=== PATIENT | female | born 1980 | race Caucasian/White ===

== ENCOUNTER → 2016-11-18 | Outpatient (CLI) | payer OTHER ==
[~2016-11-18] MED LIST: OXYC-57 PO; PRENTAB26 PO
[2016-11-18 15:13] LABS: URINE APPEARANCE CLEAR (CLEAR); URINE BILIRUBIN NEG (NEG); URINE COLOR YELLOW; URINE EPITHELIAL CELL AUTO >30 /lpf (0-5); URINE NITRITE NEG (NEG); URINE PH 6.5 (4.5-7.5); UROBILINOGEN NEG (NEG)
[2016-11-18 15:18] LABS: MANUAL MICROSCOPIC REQUIRED? NO; REVIEW REQ? NO
== END | disposition home or self-care (01) ==
LOC: C.LABSPEC 13:52
PROVIDERS: ATTEND Obstetrics & Gynecology
DX: O44.03 Complete placenta previa NOS or without hemorrhage, third trimester (principal)

== ENCOUNTER → 2016-11-18 | Outpatient (CLI) | payer OTHER ==
[2016-11-18 13:10] LABS: HEMATOCRIT 37.5 % (37-47)
[2016-11-18 13:41] LABS: GTGD 50 Grams
== END | disposition home or self-care (01) ==
LOC: C.LAB1850 11:42
PROVIDERS: ATTEND Obstetrics & Gynecology
DX: O44.03 Complete placenta previa NOS or without hemorrhage, third trimester (principal)

== ENCOUNTER 2017-01-04 09:16 | Inpatient (IN) | payer OTHER ==
[~2017-01-04] VITALS: Ht 165.1 cm; Wt 72.6 kg
[2017-01-04] VITALS (11 sets, daily range): BP systolic 107–118; BP diastolic 60–86; PULSE 67–92; TEMP 36.3–37.1; O2SAT 100; Ht 165.1 cm; Wt 72.6 kg
[~2017-01-04 09:16] MED LIST changes: -OXYC-57 PO
[2017-01-04] MEDS ORDERED: CITRIC ACID/SODIUM CITRATE 15 ML UDC PO ONE (10:30)
[2017-01-04] MEDS ORDERED: LACTATED RINGER'S 1000ML 1,000 ML IV SCH ×2 (10:30→12:18)
--- NOTE | 2017-01-04 10:46 | DIAGNOSTIC IMAGING REPORT ---
LIMITED (US) CLINICAL HISTORY: Abnormal bleeding. COMPARISON STUDY: No previous studies for comparison. FINDINGS: The study is performed in a normal fashion on an emergent basis. A single fetus in cephalic presentation was identified. The heart rate was 159. There is a possible placenta previa however the cervical os was not demonstrated on the provided images and evaluation of the placenta position nondiagnostic. IMPRESSION: Technically limited study. Possible placenta previa however the evaluation of placenta position is felt to be nondiagnostic. Additional imaging including translabial scanning might be considered in follow-up for further evaluation. Electronically signed by: Zaid Banks M.D. 01/04/2017 10:45 AM Dictated Date/Time: 01/04/2017 10:42 AM
[2017-01-04] MEDS ORDERED: MoRPHine SULFATE PF 1 MG/ML 10 ML AMP/VIAL ONE (10:50)
[2017-01-04 10:54] LABS: HEMATOCRIT 36.6 % (37-47); MEAN CELL VOLUME 92.2 fL (80-100); MEAN CORPUSCULAR HEMOGLOBIN 31.5 pg (25-34); MEAN CORPUSCULAR HGB CONC 34.2 g/dl (32-36); MEAN PLATELET VOLUME 9.1 fL (7.4-10.4); PLATELET COUNT 192 K/uL (130-400); RED BLOOD COUNT 3.97 M/uL (4.2-5.4); WHITE BLOOD COUNT 6.67 K/uL (4.8-10.8)
[2017-01-04] MEDS ORDERED: CITRIC ACID/SODIUM CITRATE 15 ML UDC ONE (11:05)
[2017-01-04] MEDS ORDERED: NALOXONE HCL INJ 1 MG in SODIUM CHLORIDE 0.9% 1000ML 1,000 ML IV PRN ×4 (11:10)
[2017-01-04] MEDS ORDERED: NALOXONE HCL INJ 0.08 MG in SYRINGE 1.8 ML IV PRN (11:10)
[2017-01-04] MEDS ORDERED: LACTATED RINGER'S 1000ML 500 ML IV PRN (11:10)
[2017-01-04] MEDS ORDERED: SODIUM CHLORIDE 0.9% 1000ML 1,000 ML IV PRN (11:10)
[2017-01-04] MEDS ORDERED: KETOROLAC TROMETHAMINE 30 MG/ML VIAL IV. PRN ×2 (11:15)
[2017-01-04] MEDS ORDERED: MoRPHine SULFATE PF 1 MG/ML 10 ML AMP/VIAL EPI PRN (11:15)
[2017-01-04] MEDS ORDERED: MEPERIDINE HCL 25 MG/ML CARP IV PRN ×2 (11:15)
[2017-01-04] MEDS ORDERED: EpHEDrine SULFATE INJ 50 MG/ML AMP IV PRN ×2 (11:15)
[2017-01-04] MEDS ORDERED: NALBUPHINE HCL INJ 10 MG/ML AMP IV PRN (11:15)
[2017-01-04] MEDS ORDERED: PROMETHAZINE HCL INJ 25 MG in SODIUM CHLORIDE 0.9% 50ML 50 ML IV PRN (11:15)
[2017-01-04] MEDS ORDERED: PHENYLEPHRINE 100MCG/ML 5ML SYR IV PRN (11:15)
[2017-01-04] MEDS ORDERED: PROMETHAZINE HCL INJ 12.5 MG in SODIUM CHLORIDE 0.9% 50ML 50 ML IV PRN (11:15)
[2017-01-04] MEDS ORDERED: NO NARCOTICS OR SEDATIVES SCH (11:15)
[2017-01-04] MEDS ORDERED: ONDANSETRON INJ 2 MG/ML 2 ML VIAL IV PRN ×2 (11:15)
[2017-01-04] MEDS ORDERED: ATROPINE SULFATE 0.1 MG/ML 5ML SYR IV PRN (11:15)
[2017-01-04] MEDS ORDERED: DiphenhydrAMINE HCL 50 MG/ML VIAL IV PRN (11:15)
[2017-01-04] MEDS ORDERED: NALOXONE HCL 0.4 MG/1 ML VIAL/CARP IV PRN (11:15)
[2017-01-04] MEDS ORDERED: OXYTOCIN INJ 10 UNITS/ML VIAL ONE ×3 (11:40→11:56)
[2017-01-04] MEDS ORDERED: METOCLOPRAMIDE HCL INJ 5 MG/ML 2 ML VIAL ONE (11:40)
[2017-01-04] MEDS ORDERED: ONDANSETRON INJ 2 MG/ML 2 ML VIAL ONE (11:40)
[2017-01-04] MEDS ORDERED: PHENYLEPHRINE 100MCG/ML 5ML SYR ONE (11:40)
[2017-01-04] MEDS ORDERED: EpHEDrine SULFATE 50MG/5ML SYR ONE (11:40)
[2017-01-04] MEDS ORDERED: PATIENT'S HEIGHT AND/OR WEIGHT NEEDED STA (12:07)
[2017-01-04] MEDS ORDERED: SUPERCREAM 0.870 % 15GM JAR EXT PRN (12:30)
[2017-01-04] MEDS ORDERED: HYDROCORTISONE ACETATE 25 MG SUPP PR PRN (12:30)
[2017-01-04] MEDS ORDERED: LANOLIN OINT EXT PRN ×2 (12:30)
[2017-01-04] MEDS ORDERED: MAGNESIUM HYDROXIDE SUSP 30 ML UDC PO PRN (12:30)
[2017-01-04] MEDS ORDERED: BENZOCAINE 20% AER SPR 82.5 GM CAN EXT PRN (12:30)
--- NOTE | 2017-01-04 12:39 | [facility] Post Operative Brief Note ---
Immediate Operative Summary Operative Date January 04, 2017. Pre-Operative Diagnosis 1. 36+ wk ega 2. CPP 3. Vaginal bleeding Post-Operative Diagnosis same, malpresentation. Procedure(s) Performed Primary LTCS Surgeon Arjun Director Of Sustainability Surgeon(s) Barbara Estimated Blood Loss 800 Findings viable male apgars 8,9, nl uterus, tubes and ovaries bilaterally. Fluids (cc crystalloids) 3000 Specimens cord blood Drains berumen Anesthesia spinal with duramorph Complication(s) None Disposition Recovery Room / PACU
--- NOTE | 2017-01-04 12:40 | Medical Student: [facility] ---
Immediate Operative Summary Operative Date January 04, 2017. Pre-Operative Diagnosis (1) 36 week , (2) Complete placenta previa Post-Operative Diagnosis (1) 36 week , (2) Complete placenta previa Procedure(s) Performed primary c/s Surgeon Dr. Díaz Specialty Sales Representative Surgeon(s) Dr. Jimenez, Dr. Woodard Estimated Blood Loss 800cc Findings Viable baby boy delivered breech, [id number], 8,9 Normal uterus and adnexa bilaterally Fluids (cc crystalloids) 3L Specimens Placenta and cord Drains Gibson Anesthesia Spinal Complication(s) None Disposition L&D
[2017-01-04] MEDS ORDERED: OXYTOCIN INJ 30 UNITS in LACTATED RINGER'S 1000ML 1,000 ML IV SCH (13:00)
--- NOTE | 2017-01-04 13:06 | OPERATIVE REPORT ---
DATE OF OPERATION: 01/04/2017 PREOPERATIVE DIAGNOSES: 1. A 36 and 2/7 weeks intrauterine . 2. Complete placenta previa. 3. Vaginal bleeding. POSTOPERATIVE DIAGNOSES: 1. Same. 2. transverse lie. PROCEDURE: Primary low transverse section. SURGEON: Dr. Shana Díaz. SERVICE CENTER APPRAISER: Jerrica Jimenez DO IV FLUIDS: 3 liters. ESTIMATED BLOOD LOSS: 800 mL. ANESTHESIA: Spinal with Duramorph. FINDINGS: Viable male , Apgars 8 and 9. Normal uterus, tubes and ovaries bilaterally. Complete placenta previa as noted. INDICATIONS: A 36-year-old 6, para 3 at 36 and 2/7 weeks, who presented to the labor and delivery suite with acute onset of bright red vaginal bleeding and a known complete placenta previa. Given her gestational age, the decision was made to proceed with a section. The fetus was cephalic prior to going back to the operating room. DESCRIPTION OF PROCEDURE: The patient was taken to the operating room and identified. After adequate spinal anesthesia was obtained, she was placed in the supine position with a leftward tilt and prepped and draped in the usual sterile fashion. The knife was used to create a Pfannenstiel skin incision that was carried down to the underlying layer of fascia. The fascia was nicked in midline and this opening was extended laterally using Whitmore scissors. Two Poonam clamps were placed in the superior and inferior aspects of the fascial incision. tenting it upwards and the underlying rectus muscles were dissected off the overlying fascia both sharply and bluntly using Whitmore scissors. The rectus muscles were bluntly in midline. The peritoneal cavity was bluntly entered into. This opening was stretched. The bladder blade was placed. The vesicouterine peritoneum was elevated and the bladder flap was created by first incising the peritoneum with Metzenbaum scissors and creating a bladder flap digitally. The bladder blade was replaced. Knife was used to create a hysterotomy that was then stretched. The operators hand was placed through the hysterotomy and the feet were noted. With the hand further extending to the left upper quadrant, the buttocks were s brought to the hysterotomy. With fundal pressure, the buttocks was delivered to the level of the scapula. The arms were swept across the anterior midline. The head was flexed and delivered. Nuchal cord x1 was reduced and the cord was clamped and cut and the was handed off to the awaiting pediatricians. Cord blood was obtained. The placenta was manually expressed. The uterus exteriorized and cleared of all clots and debris. Hysterotomy was closed in a running interlocking fashion using 0 Vicryl. A second imbricating layer of 0 Vicryl was placed. Hemostasis was inadequate to the left aspect of the hysterotomy and a 2-0 and 0 Vicryl [id number] sutures were placed and hemostasis was deemed adequate. The uterus was returned to the abdomen on several occasions to identify the bleeder and adequately obtain hemostasis. The pelvis had been irrigated and all clots and debris were removed. The uterus was returned to the abdomen for the final time and the hysterotomy was inspected and there was no further bleeding noted. At this point, the fascia was closed in a running fashion using 0 Vicryl. The skin was closed in a subcuticular fashion using 4-0 Vicryl. All sponge, lap and needle counts were correct x2. The patient was returned to the recovery room in stable condition. I attest to the content of the Intraoperative Record and any orders documented therein. Any exceptions are noted below. SUBHA
--- NOTE | 2017-01-04 14:09 | Anesthesiology Progress Note ---
Anesthesia Post Op Note Date & Time January 04, 2017 at 14:09 Notes Mental Status: alert / awake / arousable, participated in evaluation Pt Amnestic to Procedure: Yes Nausea / Vomiting: adequately controlled Pain: adequately controlled Airway Patency, RR, SpO2: stable & adequate BP & HR: stable & adequate Hydration State: stable & adequate Anesthetic Complications: no major complications apparent
[2017-01-04] MEDS: SIMETHICONE 80 MG CHEW PO SCH ×3 (14:42→19:55)
[2017-01-04] MEDS: OXYTOCIN INJ 20 UNITS in LACTATED RINGER'S 1000ML 1,000 ML IV SCH ×2 (14:49→23:14)
[2017-01-04] MEDS: DOCUSATE SODIUM 100 MG CAP PO SCH (19:55)
[2017-01-05 00:40] VITALS: O2SAT 98
[2017-01-05 01:35] VITALS: O2SAT 96
[2017-01-05 02:30] VITALS: O2SAT 99
[2017-01-05 04:00] VITALS: BP 110/64; PULSE 90; TEMP 37.4; O2SAT 100
[2017-01-05] MEDS ORDERED: DiphenhydrAMINE HCL 50 MG/ML VIAL IV PRN (04:00)
[2017-01-05] MEDS ORDERED: ONDANSETRON INJ 2 MG/ML 2 ML VIAL IV PRN (04:00)
[2017-01-05] MEDS ORDERED: KETOROLAC TROMETHAMINE 30 MG/ML VIAL IV. PRN (04:00)
[2017-01-05] MEDS ORDERED: OXYCODONE/ACETAMINOPHEN 5-325 TAB PO PRN (04:00)
[2017-01-05] MEDS ORDERED: PROMETHAZINE HCL INJ 25 MG in SODIUM CHLORIDE 0.9% 50ML 50 ML IV PRN (04:00)
[2017-01-05] MEDS ORDERED: DC INTRASPINAL MORPHINE PRN (04:00)
[2017-01-05] MEDS ORDERED: CEFAZOLIN IV 2,000 MG in DEXTROSE 5% 50ML 50 ML IV SCH (06:00)
[2017-01-05 06:18] LABS: BASO % 0.1 %; BASO ABS # 0.01 K/uL (0-0.2); COMPLETE YES; EOS % 1.1 %; HEMATOCRIT 29.3 % (37-47); IG% 0.2 %; LYMPH % 10.1 %; LYMPH ABS # 1.06 K/uL (1.2-3.4); MEAN CELL VOLUME 93.6 fL (80-100); MEAN CORPUSCULAR HEMOGLOBIN 32.3 pg (25-34); MEAN CORPUSCULAR HGB CONC 34.5 g/dl (32-36); MONO % 5.9 %; NEUT % 82.6 %; PLATELET COUNT 159 K/uL (130-400); RED BLOOD COUNT 3.13 M/uL (4.2-5.4); WHITE BLOOD COUNT 10.51 K/uL (4.8-10.8)
[2017-01-05 07:00] VITALS: BP 102/65; PULSE 83; TEMP 37.1; O2SAT 99
[2017-01-05] MEDS ORDERED: ACETAMINOPHEN 325 MG TAB PO PRN (07:00)
--- NOTE | 2017-01-05 07:32 | Progress Note ---
Subjective January 05, 2017. Subjective conversation w/ patient, physical exam, lab review Ambulation: limited ambulation Voiding: no voiding problems Passing Gas: No Diet Tolerance: Regular Diet Lochia: Moderate Feeding Type: Breast Feeding Pain: pain with walking Comment: Patient was seen at the bedside. No acute event overnight. Review of Systems Constitutional: No fever Respiratory: No cough, No shortness of breath Cardiac: No chest pain Breast: No breast lump Abdomen: No nausea, No pain, No vomiting Female : No dysuria, No urinary frequency Patient was seen at the bedside. No acute event overnight. Objective Vital Signs Date Time Temp Pulse Resp B/P Pulse Ox O2 Delivery O2 Flow Rate FiO2 01/05/17 04:00 37.4 90 18 110/64 100 Room Air 01/05/17 04:00 18 100 01/05/17 02:30 18 99 01/05/17 01:35 16 96 01/05/17 00:40 16 98 01/04/17 23:40 100 Room Air 01/04/17 23:40 37.1 85 16 115/86 100 Room Air 01/04/17 23:40 16 100 01/04/17 20:00 36.6 92 18 118/72 100 Room Air 01/04/17 20:00 18 100 01/04/17 19:00 18 100 01/04/17 18:00 18 100 01/04/17 17:00 36.5 73 18 108/67 100 Room Air 01/04/17 17:00 18 100 01/04/17 16:00 16 100 01/04/17 16:00 36.4 75 18 112/70 100 Room Air 01/04/17 15:58 36.4 75 18 112/70 100 Room Air 01/04/17 15:00 18 100 01/04/17 15:00 36.3 67 18 107/60 100 Room Air 01/04/17 15:00 100 Room Air 01/04/17 15:00 100 Room Air Physical Exam General Appearance: WELL-APPEARING, WD/WN, NO APPARENT DISTRESS Respiratory/Chest: chest non-tender, lungs clear, normal breath sounds, no respiratory distress Cardiovascular: regular rate, rhythm Abdomen: normal bowel sounds, non tender, soft Fundus: Firm, Relation to Umbilicus (about 1cm below U) Incision Description: Clean, Dry & Intact Extremities: non-tender, no pedal edema, no calf tenderness Laboratory Results Last 24 Hours Test 01/04/17 10:45 01/05/17 05:40 White Blood Count 6.67 K/uL 10.51 K/uL Red Blood Count 3.97 M/uL 3.13 M/uL Hemoglobin 12.5 g/dL 10.1 g/dL Hematocrit 36.6 % 29.3 % Mean Corpuscular Volume 92.2 fL 93.6 fL Mean Corpuscular Hemoglobin 31.5 pg 32.3 pg Mean Corpuscular Hemoglobin Concent 34.2 g/dl 34.5 g/dl RDW Standard Deviation 44.4 fL 46.9 fL RDW Coefficient of Variation 13.4 % 13.9 % Platelet Count 192 K/uL 159 K/uL Mean Platelet Volume 9.1 fL 9.0 fL Neutrophils (%) (Auto) 82.6 % Lymphocytes (%) (Auto) 10.1 % Monocytes (%) (Auto) 5.9 % Eosinophils (%) (Auto) 1.1 % Basophils (%) (Auto) 0.1 % Neutrophils # (Auto) 8.68 K/uL Lymphocytes # (Auto) 1.06 K/uL Monocytes # (Auto) 0.62 K/uL Eosinophils # (Auto) 0.12 K/uL Basophils # (Auto) 0.01 K/uL Immature Granulocyte % (Auto) 0.2 % Immature Granulocyte # (Auto) 0.02 K/uL Medications Current Inpatient Medications Medications (Trade) Dose Ordered Sig/Erick Route Start Time Stop Time Status Last Admin Dose Admin Lactated Ringer's 1,000 ml @ 1,000 mls/hr Q1H IV 01/04/17 10:30 02/03/17 10:29 01/04/17 11:18 1,000 MLS/HR Cefazolin Sodium/ Dextrose (Ancef Iv/D5 50ml) 60 ml @ 100 mls/hr PREOP IV 01/05/17 06:00 01/05/17 18:00 01/04/17 11:20 100 MLS/HR Morphine Sulfate TODAY PRN EPI 01/04/17 11:15 Lactated Ringer's (Lr 1000ml) 1,000 ml @ 125 mls/hr Q8H IV 01/04/17 12:18 02/03/17 12:17 Ketorolac Tromethamine (Toradol Inj) 30 mg Q6H PRN IV. 01/05/17 04:00 01/08/17 03:59 Oxycodone/ Acetaminophen (Percocet 5-325mg Tab) 1 tab Q4H PRN PO 01/05/17 04:00 01/19/17 03:59 Oxycodone/ Acetaminophen 2 tab 2 tab Q4H PRN PO 01/05/17 04:00 01/19/17 03:59 Promethazine HCl/ Sodium Chloride (Phenergan Inj/ Nss 50ml) 51 ml @ 204 mls/hr Q4H PRN IV 01/05/17 04:00 02/04/17 03:59 Ondansetron HCl (Zofran Inj) 4 mg Q4H PRN IV 01/05/17 04:00 02/04/17 03:59 Bisacodyl (Dulcolax Tab) 5 mg HS ONCE PO 01/05/17 22:00 01/05/17 22:01 Docusate Sodium (coLACE CAP) 100 mg BID PO 01/04/17 20:00 02/03/17 19:59 01/04/17 19:55 100 MG Magnesium Hydroxide (Milk Of Magnesia Susp) 30 ml HS PRN PO 01/04/17 12:30 02/03/17 12:29 Cocaine HCl (Supercream 0.870% Cr) BID PRN EXT 01/04/17 12:30 01/18/17 12:29 Lanolin (Lanolin Oint) PRN PRN EXT 01/04/17 12:30 02/03/17 12:29 Hydrocortisone Acetate (Anusol Hc Supp) 25 mg BID PRN MT 01/04/17 12:30 02/03/17 12:29 Benzocaine (Dermoplast Aero Spr) 1 appln PRN PRN EXT 01/04/17 12:30 02/03/17 12:29 Simethicone (Mylicon Chew Tab) 80 mg QID PO 01/04/17 13:00 02/03/17 12:59 01/04/17 19:55 80 MG Diphenhydramine HCl (Benadryl Cap) 25 mg QID PRN PO 01/05/17 04:00 02/04/17 03:59 Diphenhydramine HCl (Benadryl Inj) 25 mg QID PRN IV 01/05/17 04:00 02/04/17 03:59 Ibuprofen (Motrin Tab) 600 mg Q4H PRN PO 01/05/17 06:45 02/04/17 06:44 Acetaminophen (Tylenol Tab) 650 mg Q4H PRN PO 01/05/17 07:00 02/04/17 06:59 Assessment and Plan Problem List Medical Problems: (1) Lumbar strain Status: Acute Post-Op Day#: 1 Continue Routine Care: This is a 36 y/o female, , s/p . Limited ambulation. Plan: - Vitals signs are reviewed and WNL (Tmax 37.4 ) - Last Hgb is 10.1 - Blood type O+, GBS positive, Rubella Immune - Routine care - Encourage ambulation, monitor and control pain with medication as needed , continue with regular diet as tolerated and monitor lochia - Stool softeners and sitz bath recommended - Encourage breast feeding and educate about breast feeding Resident Physician Supervision Note: I was present with Dr. Verdin during the history and exam. I discussed the case with the resident and agree with the findings and plan as documented in the note. Any exceptions or clarifications are listed here: Doing well. Hgb noted. Plan recheck tomorrow. Enc ambulation, adv diet, po pain meds. breast feeding. Documented By: Shana Díaz
[2017-01-05] MEDS: IBUPROFEN 600 MG TAB PO PRN ×3 (07:40→17:51)
[2017-01-05] MEDS: OXYCODONE/ACETAMINOPHEN 5-325 TAB PO PRN ×3 (07:41→20:05)
[2017-01-05] MEDS: SIMETHICONE 80 MG CHEW PO SCH ×4 (07:42→19:55)
[2017-01-05] MEDS: DOCUSATE SODIUM 100 MG CAP PO SCH ×2 (07:42→19:55)
[2017-01-05 17:00] VITALS: BP 115/69; PULSE 81; TEMP 37.1; O2SAT 97
[2017-01-05] MEDS ORDERED: BISACODYL 5 MG TABEC ONE (20:03)
[2017-01-05] MEDS ORDERED: BISACODYL 5 MG TABEC PO ONE (22:00)
[2017-01-06 00:05] VITALS: BP 96/55; PULSE 76; O2SAT 100
[2017-01-06] MEDS: IBUPROFEN 600 MG TAB PO PRN ×4 (00:17→18:52)
[2017-01-06] MEDS: OXYCODONE/ACETAMINOPHEN 5-325 TAB PO PRN ×3 (00:17→18:52)
[2017-01-06 04:00] VITALS: BP 125/55; TEMP 37
--- NOTE | 2017-01-06 07:15 | Progress Note ---
Subjective January 06, 2017. Subjective conversation w/ patient, physical exam Voiding: no voiding problems Feeding Type: Breast Feeding Objective Vital Signs Date Time Temp Pulse Resp B/P Pulse Ox O2 Delivery O2 Flow Rate FiO2 01/06/17 04:00 37.0 125/55 01/06/17 00:05 76 18 96/55 100 Room Air 01/06/17 00:05 Room Air 01/05/17 17:00 Room Air 01/05/17 17:00 37.1 81 18 115/69 97 Room Air 01/05/17 07:30 Room Air Physical Exam General Appearance: WELL-APPEARING, NO APPARENT DISTRESS Incision Description: Clean, Dry & Intact, Ecchymosis Extremities: no calf tenderness Laboratory Results Last 24 Hours Test 01/06/17 05:52 Hemoglobin 10.1 g/dL Hematocrit 30.0 % Assessment and Plan Problem List Medical Problems: (1) Lumbar strain Status: Acute Post-Op Day#: 2 Continue Routine Care: - doing well - some bruising of incision, discussed with patient - ambulate - routine care
[2017-01-06 08:00] VITALS: BP 118/71; PULSE 89; TEMP 37; O2SAT 99
[2017-01-06] MEDS: SIMETHICONE 80 MG CHEW PO SCH ×4 (08:18→20:00)
[2017-01-06] MEDS: DOCUSATE SODIUM 100 MG CAP PO SCH ×2 (08:18→18:53)
[2017-01-06 15:56] VITALS: BP 109/70; PULSE 73; TEMP 37
[2017-01-07] VITALS: BP 103/66; PULSE 69; TEMP 36.3
[2017-01-07] MEDS: IBUPROFEN 600 MG TAB PO PRN ×2 (00:19→07:31)
[2017-01-07] MEDS: OXYCODONE/ACETAMINOPHEN 5-325 TAB PO PRN ×2 (00:20→07:31)
[2017-01-07 07:00] VITALS: BP 123/77; PULSE 78; TEMP 37.1; O2SAT 99
[2017-01-07] MEDS: DOCUSATE SODIUM 100 MG CAP PO SCH (07:30)
[2017-01-07] MEDS: SIMETHICONE 80 MG CHEW PO SCH ×2 (07:30→12:00)
--- NOTE | 2017-01-07 08:32 | Progress Note ---
Subjective January 07, 2017. Subjective conversation w/ patient, physical exam Ambulation: ambulating normally Voiding: no voiding problems Passing Gas: Yes Diet Tolerance: Regular Diet Lochia: Moderate Feeding Type: Breast Feeding Review of Systems Constitutional: No problem reported Respiratory: No problem reported Cardiac: No problem reported Breast: No problem reported Abdomen: No problem reported Female : No problem reported Objective Vital Signs Date Time Temp Pulse Resp B/P Pulse Ox O2 Delivery O2 Flow Rate FiO2 01/07/17 07:00 37.1 78 20 123/77 99 Room Air 01/07/17 00:00 36.3 69 14 103/66 Room Air 01/07/17 00:00 Room Air 01/06/17 16:10 Room Air 01/06/17 15:56 37.0 73 18 109/70 Room Air Physical Exam General Appearance: WELL-APPEARING, NO APPARENT DISTRESS Respiratory/Chest: no respiratory distress Cardiovascular: regular rate, rhythm Abdomen: non tender, soft Fundus: Firm Incision Description: Clean, Dry & Intact Extremities: normal range of motion Assessment and Plan Problem List Medical Problems: (1) Lumbar strain Status: Acute Post-Op Day#: 3 Continue Routine Care: POD#3 s/p . Doing well. Labia ecchymotic, but incision healing well. Anticipate discharge home today. Teaching done.
[2017-01-07] MEDS ORDERED: OXYC-57 PO (08:33)
--- NOTE | 2017-01-07 08:34 | Discharge Instructions ---
Discharge Instructions Date of Service January 07, 2017. Admission Reason for Admission: Check Bleeding Discharge Discharge Diagnosis / Problem: s/p section Discharge Goals Goal(s): Routine recovery after Activity Recommendations Activity Limitations: per Instructions/Follow-up section . Instructions / Follow-Up Instructions / Follow-Up ACTIVITY RECOMMENDATIONS: * Gradual return to full activity over the next 2-3 weeks. * No lifting - nothing heavier than baby over the next 2-3 weeks. * Do not engage in vigorous exercise, sexual activity or sports until cleared by your physician. * Do not drive or operate any motorized equipment until cleared by your physician. * You may shower/bathe daily. MEDICATIONS: For discomfort or pain, you may use Acetaminophen (Tylenol), Ibuprofen (Advil), or Naproxen (Aleve) following the package directions. For constipation you may use Colace following the package directions. BREAST CARE: If you are not breast feeding: * Wear a supportive bra 24 hours a day for one to two weeks. * Avoid stimulating your breasts and nipples as much as possible during the first few weeks after delivery. * When taking a shower, have the warm water hit your back, not breasts. * When your breasts feel full, apply ice packs. Usually three to four times a day helps ease the discomfort. * Take a mild pain medication (Tylenol / Motrin) when you are uncomfortable. If breast feeding: * Use breast milk to lubricate nipples. Lansinoh cream may be used for sore nipples. You do not need to remove cream prior to breast feeding. If using a different brand of cream, check the label for directions regarding removal of cream prior to nursing. * Wear a supportive bra. * If having problems with breasts or breast feeding, call a product support consultant or your health care provider. SPECIAL CARE INSTRUCTIONS: When you are discharged from the hospital, it is important for you to follow the instructions listed below: * During the first week at home, you should be able to care for yourself and your baby. In addition, the usual light household activities are encouraged. * Limit your activities to the way you feel. Do not try to clean the house or move furniture. Be sensible. * If you actively engage in sports and have done so up until the time of your delivery, you may resume these activities as soon as you feel able. This may take up to one month or even longer. Use good judgment. * Continue to take your vitamins for at least six weeks after the of your baby. * Your diet need not be limited unless you were on a special diet before your delivery. Breast-feeding mothers need around 2500 calories per day and at least 64-80 ounces of fluid per day (8 to 10 glasses). * You should eat foods from the four major food groups. Crash diets or fad diets are to be avoided. Eating lean meats, fresh fruits and vegetables, low-fat dairy products, high fiber foods and a regular exercise program, will help you get back to your pre- weight without putting your health at risk. * Constipation is sometimes a problem after delivery. Take a mild laxative as needed. If breast feeding, Milk of Magnesia is acceptable to use. You may use a suppository or Fleets enema. * A daily shower or tub bath is suggested. Wash incision daily with warm soapy water and pat dry. It doesn't need to be covered unless drainage is present. * A bloody vaginal discharge will usually continue until around four weeks . A small amount of bleeding may continue for as long as six weeks. Vaginal discharge changes from the bright red bleeding after delivery to pink then brownish and finally yellowish-pink before becoming white and disappearing. * Bleeding may increase with activity. Your first period may come in 4-8 weeks. If you are breast feeding, your period may be delayed even longer. * [place] (sex) can begin whenever both you and your partner feel comfortable and do not have any form of genital infection. It is recommended that you wait at least six weeks for internal and external healing to occur. If you have questions, please talk to your health care practitioner. A condom should be used to prevent infection and . * Foreplay, gentle intercourse and lubrication is very important the first several times to prevent pain. A water-based lubricant such as K-Y jelly or Astroglide may be used. * If you have RH negative blood and your baby is RH positive, you will receive RHOGAM by injection prior to discharge. The nurse will give you a card to keep with you that has the date and place that you received RHOGAM after delivery. * During your care, you had a Rubella screen done to check for the presence of rubella antibodies in your blood. If your test was negative, you will receive a Rubella vaccine prior to discharge. This vaccine may cause a fever, soreness at the injection site and flu-like symptoms. If these symptoms persist, notify your health care practitioner. is not advised for one month after a Rubella vaccine. * Verbalizes understanding of car seat law as reviewed with patient nursing. * Car Seat hand-out given and reviewed with patient by nursing. * Shaken baby information reviewed with patient by nursing. Call you doctor if: * Heavy bleeding (saturating several pads an hour) or passing clots the size of your fist. * A fever >101 degrees F (38.3 degrees C) on two occasions four hours apart and /or chills. * Unusual pain in the pelvic or vaginal areas. * Call the doctor for any increased redness, drainage or swelling around the incision and any pain unrelieved by prescribed pain medication. * "Baby Blues" lasting longer than two weeks. If you have any questions or concerns, call your health care practitioner at . FOLLOW UP VISIT: * Please call the office at to schedule a 6 week examination. It is important you keep this appointment. It is important for you to make arrangements for either yearly or twice yearly check-ups thereafter. Current Hospital Diet Patient's current hospital diet: Regular OB Diet Discharge Diet Recommended Diet: Regular OB Diet Procedures Procedures Performed: Primary caesarean section for complete placenta previa for living male child at 1144 Pending Studies Studies pending at discharge: no Medical Emergencies . Who to Call and When: Medical Emergencies: If at any time you feel your situation is an emergency, please call 911 immediately. . Non-Emergent Contact Non-Emergency issues call your: Primary Care Provider, Art Educator . . "Provider Documentation" section prepared by Jerrica Jimenez. . VTE Core Measure Inpt VTE Proph given/why not?: Treatment not indicated
[2017-01-07 13:10] VITALS: BP_DIAS 77; PULSE 78; TEMP 37.1
--- NOTE | 2017-01-10 14:25 | DISCHARGE SUMMARY ---
ADMISSION DIAGNOSES: 1. 36 and 2/7 weeks intrauterine . 2. Complete placenta previa. 3. Vaginal bleeding. DISCHARGE DIAGNOSES: Same. PROCEDURE: Primary low transverse section. BRIEF HISTORY AND HOSPITAL COURSE: A 36-year-old 6, para 3 at 36 and 2/7 weeks who presented to labor and delivery suite with acute onset of bright red vaginal bleeding and a known complete placenta previa. Given her gestational age, the decision was made to proceed with section due to the bleeding placenta previa. The fetus was cephalic prior to going back to the operating room; however, upon performed procedure as noted the baby was delivery in the breech position. The surgery itself was otherwise unremarkable with an estimated blood loss 800 mL. The patient's postop recovery and course was uncomplicated. Her postop hemoglobin was 10. On her postop day #3, she was tolerating a regular diet, voiding spontaneously without difficulty and ambulating without difficulty and was stable for discharge to home. She was given appropriate discharge instructions as well as pain medications and instructed to follow up in 6 weeks for her checkup.
== END 2017-01-07 13:10 | disposition home or self-care (01) | DRG 766 ==
LOC: C.OPB 09:16 → C.OBG 09:16 → C.OPB 10:35 → C.OBG 10:35 → C.LD 10:51 → C.OBG 15:29
PROVIDERS: ADMIT Obstetrics & Gynecology; ATTEND Obstetrics & Gynecology
PROC: 10D00Z1 Extraction of Products of Conception, Low, Open Approach (ICD-10-PCS; principal; 2017-01-04 11:11)
DX: O44.13 Complete placenta previa with hemorrhage, third trimester (principal); O32.2XX0 Maternal care for transverse and oblique lie, not applicable or unspecified; Z3A.36 36 weeks gestation of pregnancy; Z37.0 Single live birth

== ENCOUNTER → 2018-03-14 | Outpatient (CLI) | payer OTHER ==
[~2018-03-14] MED LIST changes: +OXYC-57 PO
== END | disposition home or self-care (01) ==
LOC: C.LABSPEC 12:29
PROVIDERS: ATTEND Obstetrics & Gynecology
DX: O09.521 Supervision of elderly multigravida, first trimester (principal)

== ENCOUNTER → 2018-03-14 | Outpatient (CLI) | payer OTHER ==
[2018-03-14 16:58] LABS: BASO % 0.3 %; BASO ABS # 0.02 K/uL (0-0.2); EOS % 1.5 %; EOS ABS # 0.11 K/uL (0-0.5); HEMATOCRIT 41.9 % (37-47); HEMOGLOBIN 14.1 g/dL (12.0-16.0); IG# 0.01 K/uL (0.00-0.02); LYMPH % 27.2 %; LYMPH ABS # 2.05 K/uL (1.2-3.4); MEAN CELL VOLUME 93.7 fL (80-100); MEAN CORPUSCULAR HEMOGLOBIN 31.5 pg (25-34); MEAN CORPUSCULAR HGB CONC 33.7 g/dl (32-36); MEAN PLATELET VOLUME 10.2 fL (7.4-10.4); MONO % 6.1 %; MONO ABS # 0.46 K/uL (0.11-0.59); NEUT % 64.8 %; NEUT ABS # 4.88 K/uL (1.4-6.5); PLATELET COUNT 216 K/uL (130-400); RED CELL DISTRIBUTION WIDTH CV 12.5 % (11.5-14.5); RED CELL DISTRIBUTION WIDTH SD 42.3 fL (36.4-46.3); WHITE BLOOD COUNT 7.53 K/uL (4.8-10.8)
== END | disposition home or self-care (01) ==
LOC: C.LAB1850 11:01
PROVIDERS: ATTEND Obstetrics & Gynecology
DX: O09.521 Supervision of elderly multigravida, first trimester (principal)

== ENCOUNTER 2018-10-26 11:00 | Inpatient (IN) ==
[2018-10-29] MEDS ORDERED: LACTATED RINGER'S 1,000 ML IV PRN ×3 (11:45→15:45)
[2018-10-29] MEDS ORDERED: CEFAZOLIN 1000MG 1,000 MG/7.5 ML SYR IV PRN (11:45)
[2018-10-29] MEDS ORDERED: OXYTOCIN 30 UNITS/500 ML BAG IV PRN ×4 (11:45→23:16)
[2018-10-29] MEDS ORDERED: CEFAZOLIN 2000MG 2,000 MG/15 ML SYR IV STA (12:02)
[2018-10-29 12:14] LABS: Hemoglobin 12.3 g/dL (12.0-16.0); Mean Corpuscular Volume 91.4 fL (80-100); Mean Platelet Volume 9.1 fL (7.4-10.4); Platelet Count 187 K/uL (130-400); RDW Coefficient of Variation 13.4 % (11.5-14.5); RDW Standard Deviation 44.2 fL (36.4-46.3); Red Blood Count 3.94 M/uL (4.2-5.4); White Blood Count 7.02 K/uL (4.8-10.8)
[2018-10-29 12:16] LABS: Mean Corpuscular Hgb Conc 34.2 g/dL (32-36)
[2018-10-29] MEDS: LACTATED RINGER'S 1,000 ML IV SCH ×2 (12:18→15:40)
--- NOTE | 2018-10-29 12:43 | History & Physical Report ---
Date of Service October 29, 2018 Assessment & Plan (1) Previous section complicating , antepartum condition or complication: cervical balloon was placed without difficulty and we will begine pitocin induction. Patient & her are agreeable to this plan. Present on Admission?: Yes History of Present Illness Primary Care Provider: Lisa Lu MD Patient is a 38 yo white female EDC 10/25/18 who presents for induction of labor following prior section for placenta previa with her last delivery. Patient is requesting trial of labor & as she ahs had 3 successful vaginal deliveries prior to the C/S. is complicated by AMA, GBS positive & history of thoracic outlet syndrome. She has had contractions off & on over the past week. no bloody show or SPROM. Also of note in her history is demise at 16 weeks, etiology unknown. Blood type O positive Rubella Immune HepBsAg negative RPR NR GC/Chlam negative Allergies Allergy/AdvReac Type Severity Reaction Status Date / Time Penicillins Allergy Severe RASH/HIVES Verified 10/22/18 11:04 codeine Allergy Mild RASH/HIVES Verified 10/22/18 11:04 Home Medications Home Medications Medication Instructions Recorded Confirmed Type PNV cmb#95-ferrous fumarate-FA 1 tab PO DAILY 10/22/18 10/22/18 History [] Patient History Medical History History of placenta previa PRIOR PREGANCY History of wisdom tooth extraction Surgical History History of ankle surgery RIGHT/RECONSTRUCTIVE History of section History of repair of ACL RIGHT History of tonsillectomy Family History Grandmother Family history of colon cancer Social History Preferred Language: Nepalese Communication Ability: Effective Radio Frequency Engineer Required: No Beliefs That Will Affect Care: Taoism Current Living Situation: Family Other Information That Helps Us Care for You: No Feels Safe at Home: Yes Smoking Status: Never smoker Hx Alcohol Use: No Hx Substance Use: No Review of Systems All systems reviewed & are unremarkable except as noted in HPI & below Physical Exam Vital Signs (Past 24 Hours): Last Vital Signs Temp 36.7 C 10/29/18 11:47 Pulse 77 10/29/18 11:47 Resp 20 10/29/18 11:47 BP 120/74 10/29/18 11:47 Constitutional: WD/WN, vitals as above Respiratory: normal respiratory effort, lungs clear to auscultation Cardiovascular: RRR, no murmur, no edema Genitourinary: OB Exam Abdomen: + estimated weight (7-8 pounds) Manual OB Exam: + cervical dilation 1 cm, + cervical effacement 50%, + station - 2 and + amniotic fluid OB Exam Monitor Tracing: + external FHT monitor used, + external uterine monitor used, + category I and + normal FHT variability no calf tenderness.
--- NOTE | 2018-10-29 14:24 | Anesthesiology Consultation ---
Date of Service October 29, 2018 Assessment & Plan Chart Review Chart Review: Patient NOT seen in Pre Admission Testing and Acceptable Risk for Labor Epidural Consults Requested none ASA ASA2 Proposed Anesthesia Anesthesia Type: Labor Epidural Risk / Benefits Reviewed With: PT / POA / Parent / Guardian, Accepts Plan and Informed Consent Obtained NPO Date Last Intake of Fluids: 10/29/18 Time Last Intake of Fluids: 14:48 Date Last Intake of Solids: 10/28/18 Time Last Intake of Solids: 23:59 History Surgery Operation Date: 10/29/18 08:50 Proposed Procedures p Section in LD with Bilateral Tubal Ligation - Molly Miller MD, FACOG Height/Weight Height: 5 ft 5 in Weight: 78.925 kg Allergies Allergy/AdvReac Type Severity Reaction Status Date / Time Penicillins Allergy Severe RASH/HIVES Verified 10/22/18 11:04 codeine Allergy Mild RASH/HIVES Verified 10/22/18 11:04 Medications Home Medications Medication Instructions Recorded Confirmed Last Taken PNV cmb#95-ferrous fumarate-FA 1 tab PO DAILY 10/22/18 10/29/18 10/27/18 22:00 [] Active Medications Generic Name Dose Route Start Last Admin Trade Name Freq PRN Reason Stop Dose Admin Lactated Ringer's 1,000 mls @ 125 mls/hr 10/29/18 11:45 10/29/18 12:18 Lr IV 10/31/18 11:44 125 mls/hr .Q8H BRENDAN Administration Oxytocin 30 units in 500 mls @ 7 mls/hr 10/29/18 12:40 10/29/18 14:35 Pitocin IV 11/28/18 12:39 0.42 units/hr .Q24H PRN 7 mls/hr Labor Induction/Augmentation Titration Protocol 0.42 UNITS/HR Past Medical History Medical History demise 17 weeks 2011 History of placenta previa PRIOR PREGANCY History of wisdom tooth extraction Spontaneous 2011 Past Family History Family History Grandmother Family history of colon cancer Past Surgical History Surgical History History of ankle surgery RIGHT/RECONSTRUCTIVE History of section History of repair of ACL RIGHT History of tonsillectomy Past Anesthesia History No Hx of Anesthesia Complications History of PONV No Motion Sickness Screening History of Motion Sickness: No Social History Smoking Status: Never smoker Do You Dip or Chew Tobacco: No Hx Alcohol Use: No Hx Substance Use: No substance use type: does not use Exercise / Class Metabolic Activity II 4-5 Yardwork/Stairs/Walk up hill Negative for chest pain or shortness of breath. Patient denies active symptoms of GERD. Physical Exam Vital Signs Last Vital Signs Temp 36.8 C 10/29/18 13:02 Pulse 73 10/29/18 14:07 Resp 20 10/29/18 14:06 BP 116/65 10/29/18 14:07 Constitutional not obese gravid uterus ENMT Mouth: no TMJ abnormality and oral opening not small Thyromental Distance: > or= 3.5 Finger Breadths Mallampati Class: III Neck normal visual inspection; neck extension not limited Respiratory normal respiratory effort Auscultation: lungs clear to auscultation bilaterally Cardiovascular Rate/Rhythm: regular rate and regular rhythm Heart Sounds: no murmur Psychiatric A+Ox3, euthymic affect Orientation: alert and oriented x 3 Testing Laboratory Results 10/29/18 12:06 Blood Type O Positive 10/29/18 12:06 Antibody Screen NEGATIVE 10/29/18 12:06
[2018-10-29] MEDS ORDERED: BUPIVACAINE 0.25% 30 ML VIAL ONE ×2 (15:41→21:38)
[2018-10-29] MEDS ORDERED: fentaNYL citrate 100 MCG/2 ML VIAL ONE ×2 (15:42→21:38)
[2018-10-29] MEDS ORDERED: fentaNYL 2MCG/ML ROPIV 1.25MG/ML 100 ML BAG EPI ONE (15:42)
[2018-10-29] MEDS ORDERED: ePHEDrine sulfate 50 MG/ML AMP ONE (15:42)
[2018-10-29] MEDS ORDERED: ePHEDrine sulfate 50 MG/ML AMP IV PRN (15:45)
[2018-10-29] MEDS ORDERED: DiphenhydrAMINE HCL 50 MG/ML VIAL IV PRN (15:45)
[2018-10-29] MEDS ORDERED: fentaNYL 2MCG/ML ROPIV 1.25MG/ML 100 ML BAG EPI PRN (15:45)
[2018-10-29] MEDS ORDERED: NALOXONE HCL 0.4 MG/1 ML VIAL/CARP IV PRN (15:45)
[2018-10-29] MEDS ORDERED: NALBUPHINE HCL INJ 10 MG/ML AMP IV PRN (15:45)
[2018-10-29] MEDS ORDERED: ONDANSETRON INJ 2 MG/ML 2 ML VIAL IV PRN (15:45)
[2018-10-29] MEDS ORDERED: NALOXONE HCL 1 MG in SODIUM CHLORIDE 0.9% 1000ML 1,000 ML IV PRN (15:45)
[2018-10-29] MEDS ORDERED: HYDROCORTISONE ACETATE 25 MG SUPP PR PRN (23:16)
[2018-10-29] MEDS ORDERED: SUPERCREAM 0.870% 15 GM JAR EXT PRN (23:16)
[2018-10-29] MEDS ORDERED: OXYCODONE/ACETAMINOPHEN 5mg/325mg TAB PO PRN (23:16)
[2018-10-29] MEDS ORDERED: BISACODYL 10 MG SUPP PR PRN (23:16)
[2018-10-29] MEDS ORDERED: BENZOCAINE 20% AER SPR 82.5 GM CAN EXT PRN (23:16)
[2018-10-29] MEDS ORDERED: DIPHTHERIA/TETANUS/PERTUSSIS 0.5 ML SYR/VIAL IM ONE (23:16)
--- NOTE | 2018-10-29 23:19 | Anesthesia Procedure Note ---
Date of Service October 29, 2018 Anesthesia Post Epidural Note Vital Signs Vital Signs: Temp Pulse Resp BP Pulse Ox 36.6 C 84 18 114/57 L 100 10/29/18 19:09 10/29/18 23:14 10/29/18 20:00 10/29/18 23:07 10/29/18 23:14 Pain Intensity Abdomen: Pain Intensity: 6 Notes Mental Status: alert / awake / arousable Patient Amnestic to Procedure: No Nausea / Vomiting: adequately controlled Pain: adequately controlled Airway Patency, RR, SpO2: stable & adequate BP & HR: stable & adequate Hydration State: stable & adequate Anesthetic Complications: no major complications apparent Epidural: Removed without complications and With tip intact Notes: Pt doing well without complaints. Epidural site looks clean/dry/intact without signs of edema or erythema
--- NOTE | 2018-10-30 02:14 | Delivery Summary ---
DATE OF OPERATION: 10/29/2018 The patient is a 38-year-old white female 7, para 3-1-2-4, EDC of 10/25/2018, who presented for induction of labor following prior section for placenta previa. She was requesting a trial of labor. She has had 3 successful vaginal deliveries prior to the section, which was with her last delivery. A cervical balloon was placed for ripening and Pitocin augmentation was begun. She progressed to 4 cm dilated and the balloon and then fell out. After epidural analgesia was done and she was comfortable. The membranes were ruptured for clear fluid. She progressed to full dilation and pushed effectively over intact perineum for delivery of a viable male , direct OP presentation. There was a loose nuchal cord present that was reduced after the shoulders were delivered. The rest of the delivered easily, was placed on the mother's abdomen for further attention and drying. The infant was crying and moving all 4 limbs. After a minute, the cord was clamped and cut. The placenta was then expressed intact with a 3-vessel cord. A second-degree perineal laceration was repaired in the usual fashion with 3-0 chromic. Estimated blood loss was 300 mL. Mother and infant were doing well after delivery. I attest to the content of the Intraoperative Record and any orders documented therein. Any exception s are noted below.
[2018-10-30] MEDS: IBUPROFEN 600 MG TAB PO PRN ×4 (02:36→20:51)
--- NOTE | 2018-10-30 06:50 | Obstetrical Progress Note ---
Date of Service <Donnie Díaz - Last Filed: 10/30/18 06:50> October 30, 2018 Assessment & Plan <Donnie Díaz DO - Last Filed: 10/30/18 06:50> (1) (vaginal after ): -vital signs reviewed and WNL -last Hgb 12.3 -Blood type: O+, GBS+, Rubella Immune -pt doing well clinically -encourage ambulation, monitor and control pain with motrin tylenol, cont regular diet, monitor lochia -cont encourage breast feeding Subjective <Donnie Díaz - Last Filed: 10/30/18 06:50> 38 y/o PPD1 found in bed this morning in NAD. Reports no acute overnight events. Pt states that she has no pain other than appropriate soreness. Tolerating PO intake without N/V. Able to ambulate without issue. She is breast feeding without issue. No issues with voiding, no BM yet. No other acute concerns or complaints. Review of Systems All systems reviewed & are unremarkable except as noted in HPI & below Physical Exam <Donnie Díaz - Last Filed: 10/30/18 06:50> Vital Signs (Past 24 Hours) Last Vital Signs Temp 37.2 C 10/30/18 04:20 Pulse 67 10/30/18 04:20 Resp 18 10/30/18 04:20 BP 105/68 10/30/18 04:20 Pulse Ox 98 10/30/18 04:20 Constitutional WD/WN, vitals as above Eyes PERRL, conjunctivae normal, anicteric sclerae ENMT external ear and nose normal, oropharynx normal Respiratory normal respiratory effort, lungs clear to auscultation Cardiovascular RRR, no murmur, no edema Gastrointestinal (Abdomen) mild abd tenderness Skin no rashes, warm and dry Psychiatric A+Ox3, euthymic affect Lymphatic no LE swelling, no calf tenderness Results & Data <Donnie Díaz - Last Filed: 10/30/18 06:50> Laboratory Results Laboratory Results - last 24 hr 10/29/18 10/29/18 12:06 12:06 WBC 7.02 RBC 3.94 L Hgb 12.3 Hct 36.0 L MCV 91.4 MCH 31.2 MCHC 34.2 RDW Std Deviation 44.2 RDW Coeff of Kasey 13.4 Plt Count 187 MPV 9.1 Blood Type O Positive Antibody Screen NEGATIVE Medications Administered Current Inpatient Medications Acetaminophen (Tylenol) 650 mg PO Q6H PRN PRN Reason: Pain/LÓPEZ/Fever Stop: 11/28/18 23:15 Benzocaine (Dermoplast Pain Relieving [place]) 1 appln EXT PRN PRN PRN Reason: Perineal Discomfort Stop: 11/28/18 23:15 Bisacodyl (Dulcolax) 5 mg PO 1999 [facility] Stop: 10/30/18 20:01 Bisacodyl (Dulcolax) 10 mg [place] DAILY PRN PRN Reason: No BM on 2nd post- day Stop: 11/28/18 23:15 Cocaine HCl (Supercream 0.870%) 1 gm EXT BID PRN PRN Reason: Hemorrhoidal Inflammation Stop: 11/12/18 23:15 Diphenhydramine HCl (Benadryl) 25 mg IV Q6H PRN PRN Reason: Itching Stop: 10/30/18 15:44 Docusate Sodium (Colace) 100 mg PO BID [facility] Stop: 11/29/18 08:59 Ephedrine Sulfate (Ephedrine Sulfate) 10 mg IV Q5M PRN PRN Reason: Hypotension Stop: 10/30/18 15:44 Hydrocortisone (Anusol Hc) 25 mg [place] BID PRN PRN Reason: Hemorrhoidal Inflammation Stop: 11/28/18 23:15 Lactated Ringer's (Lr) 1,000 mls @ 999 mls/hr IV .Q1H1M PRN PRN Reason: (Pre-Anesthesia) Stop: 11/28/18 11:44 Lactated Ringer's (Lr) 1,000 mls @ 999 mls/hr IV .Q1H1M PRN PRN Reason: Tachysystole Stop: 10/31/18 11:44 Lactated Ringer's (Lr) 1,000 mls @ 125 mls/hr IV .Q8H BRENDAN Stop: 10/31/18 11:44 Last Infusion: 10/29/18 23:03 Dose: Infused Documented by: Oxytocin (Pitocin) 30 units in 500 mls @ 333.333 mls/hr IV .Q1H30M PRN; Protocol PRN Reason: Bleeding Control Stop: 11/28/18 11:44 Lactated Ringer's (Lr) 1,000 mls @ 999 mls/hr IV .Q1H1M PRN PRN Reason: Hypotension Stop: 10/30/18 15:44 Naloxone HCl 1 mg/ Sodium (Chloride) 1,002.5 mls @ 50 mls/hr IV .Q20H3M PRN PRN Reason: itching or nausea Stop: 10/30/18 15:44 Oxytocin (Pitocin) 30 units in 500 mls @ 333.333 mls/hr IV .Q1H30M PRN; Protocol PRN Reason: BLEEDING CONTROL Stop: 11/28/18 23:15 Ibuprofen (Motrin) 600 mg PO Q4H PRN PRN Reason: Pain/LÓPEZ/Cramping/Fever Stop: 11/28/18 23:15 Last Admin: 10/30/18 02:36 Dose: 600 mg Documented by: Nalbuphine HCl (Nubain) 5 mg IV Q10M PRN PRN Reason: itching or nausea Stop: 10/30/18 15:44 Naloxone HCl (Narcan) 0.1 mg IV UD PRN PRN Reason: respiratory depression Stop: 10/30/18 15:44 Ondansetron HCl (Zofran) 4 mg IV Q6H PRN PRN Reason: Nausea And Vomiting Stop: 10/30/18 15:44 Oxycodone/Acetaminophen (Percocet 5mg/325mg) 1 tab PO Q4H PRN PRN Reason: Pain not relieved by... Stop: 11/12/18 23:15 Prenat Multivit/Installment Account Checker/Iron/Folic Ac ( Vitamin) 1 tab PO QAM BRENDAN Stop: 11/29/18 08:59 Ropivacaine (Epidural (L&D)) 100 ml EPI PRN PRN; Protocol PRN Reason: Pain R/T Labor Stop: 10/30/18 15:44 Last Admin: 10/29/18 22:13 Dose: 100 ml Documented by: <Molly Miller MD, FACOG - Last Filed: 10/30/18 07:32> Co-Signing Physician Notes Resident Physician Supervision Note: I interviewed and examined the patient. Discussed with Dr. Chris Díaz and agree with findings and plan as documented in the note. Any exceptions or clarif ications are listed here: [None] Documented By: Molly Miller MD, FACOG Resident Activity Tracking <Donnie Díaz, DO - Last Filed: 10/30/18 06:50> Resident Involvement: Resident Care Provided Care Provided: Adult Hospital Medicine
[2018-10-30 07:14] LABS: Hematocrit (blood only) 33.8 % (37-47); Hemoglobin 11.2 g/dL (12.0-16.0); Mean Corpuscular Hgb Conc 33.1 g/dL (32-36); Mean Corpuscular Volume 93.6 fL (80-100); Mean Platelet Volume 9.3 fL (7.4-10.4); Platelet Count 171 K/uL (130-400); RDW Coefficient of Variation 13.6 % (11.5-14.5); RDW Standard Deviation 46.6 fL (36.4-46.3); Red Blood Count 3.61 M/uL (4.2-5.4); White Blood Count 12.12 K/uL (4.8-10.8)
[2018-10-30] MEDS: DOCUSATE SODIUM 100 MG CAP PO SCH ×2 (08:53→20:51)
[2018-10-30] MEDS: PRENATAL VITAMIN 1 TAB PO SCH (08:55)
[2018-10-30] MEDS: ACETAMINOPHEN 325 MG TAB PO PRN ×2 (15:44→23:38)
[2018-10-30] MEDS ORDERED: BISACODYL 5 MG TABEC PO SCH (20:00)
[2018-10-30] MEDS ORDERED: BISACODYL 5 MG TABEC PO ONE (23:35)
--- NOTE | 2018-10-31 06:48 | Obstetrical Progress Note ---
Date of Service <Donnie Díaz - Last Filed: 10/31/18 06:48> October 31, 2018 Assessment & Plan <Donnie Díaz - Last Filed: 10/31/18 06:48> (1) (spontaneous vaginal delivery): -vital signs reviewed and WNL -last Hgb 12.3 -Blood type: O+, GBS+, Rubella Immune -pt doing well clinically -encourage ambulation, monitor and control pain with motrin tylenol, cont regular diet, monitor lochia -cont encourage breast feeding -plan for d/c today Subjective <Donnie Díaz DO - Last Filed: 10/31/18 06:48> 38 y/o PPD2 found in bed this morning in NAD. Reports no acute overnight events. Pt states that she has no pain other than appropriate soreness. Tolerating PO intake without N/V. Able to ambulate without issue. She is breast feeding without issue. No issues with voiding, no BM yet. No other acute concerns or complaints. Pt ok with plan for d/c today. Review of Systems All systems reviewed & are unremarkable except as noted in HPI & below Physical Exam <Donnie Díaz DO - Last Filed: 10/31/18 06:48> Vital Signs (Past 24 Hours) Last Vital Signs Temp 37.2 C 10/30/18 23:32 Pulse 72 10/30/18 23:32 Resp 18 10/30/18 23:32 BP 113/68 10/30/18 23:32 Pulse Ox 97 10/30/18 23:32 Constitutional WD/WN, vitals as above Eyes PERRL, conjunctivae normal, anicteric sclerae ENMT external ear and nose normal, oropharynx normal Respiratory normal respiratory effort, lungs clear to auscultation Cardiovascular RRR, no murmur, no edema Gastrointestinal (Abdomen) mild abd tenderness Skin no rashes, warm and dry Psychiatric A+Ox3, euthymic affect Lymphatic no LE swelling, no calf tenderness Results & Data <Donnie Díaz DO - Last Filed: 10/31/18 06:48> Laboratory Results Laboratory Results - last 24 hr 10/30/18 06:16 WBC 12.12 H RBC 3.61 L Hgb 11.2 L Hct 33.8 L MCV 93.6 MCH 31.0 MCHC 33.1 RDW Std Deviation 46.6 H RDW Coeff of Kasey 13.6 Plt Count 171 MPV 9.3 Medications Administered Current Inpatient Medications Acetaminophen (Tylenol) 650 mg PO Q6H PRN PRN Reason: Pain/LÓPEZ/Fever Stop: 11/28/18 23:15 Last Admin: 10/30/18 23:38 Dose: 650 mg Documented by: Benzocaine (Dermoplast Pain Relieving [place]) 1 appln EXT PRN PRN PRN Reason: Perineal Discomfort Stop: 11/28/18 23:15 Last Admin: 10/30/18 13:52 Dose: 82.5 appln Documented by: Bisacodyl (Dulcolax) 10 mg [place] DAILY PRN PRN Reason: No BM on 2nd post- day Stop: 11/28/18 23:15 Cocaine HCl (Supercream 0.870%) 1 gm EXT BID PRN PRN Reason: Hemorrhoidal Inflammation Stop: 11/12/18 23:15 Docusate Sodium (Colace) 100 mg PO BID [facility] Stop: 11/29/18 08:59 Last Admin: 10/30/18 20:51 Dose: 100 mg Documented by: Hydrocortisone (Anusol Hc) 25 mg [place] BID PRN PRN Reason: Hemorrhoidal Inflammation Stop: 11/28/18 23:15 Lactated Ringer's (Lr) 1,000 mls @ 999 mls/hr IV .Q1H1M PRN PRN Reason: (Pre-Anesthesia) Stop: 11/28/18 11:44 Lactated Ringer's (Lr) 1,000 mls @ 999 mls/hr IV .Q1H1M PRN PRN Reason: Tachysystole Stop: 10/31/18 11:44 Lactated Ringer's (Lr) 1,000 mls @ 125 mls/hr IV .Q8H BRENDAN Stop: 10/31/18 11:44 Last Infusion: 10/29/18 23:03 Dose: Infused Documented by: Oxytocin (Pitocin) 30 units in 500 mls @ 333.333 mls/hr IV .Q1H30M PRN; Protocol PRN Reason: Bleeding Control Stop: 11/28/18 11:44 Oxytocin (Pitocin) 30 units in 500 mls @ 333.333 mls/hr IV .Q1H30M PRN; Protocol PRN Reason: BLEEDING CONTROL Stop: 11/28/18 23:15 Ibuprofen (Motrin) 600 mg PO Q4H PRN PRN Reason: Pain/LÓPEZ/Cramping/Fever Stop: 11/28/18 23:15 Last Admin: 10/30/18 20:51 Dose: 600 mg Documented by: Oxycodone/Acetaminophen (Percocet 5mg/325mg) 1 tab PO Q4H PRN PRN Reason: Pain not relieved by... Stop: 11/12/18 23:15 Prenat Multivit/Tea Blender/Iron/Folic Ac ( Vitamin) 1 tab PO QAM BRENDAN Stop: 11/29/18 08:59 Last Admin: 10/30/18 08:55 Dose: 1 tab Documented by: <Duong Schaffer MD, FACOG - Last Filed: 10/31/18 07:55> Co-Signing Physician Notes Resident Physician Supervision Note: I interviewed and examined the patient. Discussed with Dr. Brown and agree with findings and plan as documented in the note. Any exceptions or clarifications are listed here: [None] Documented By: Duong Schaffer MD, FACOG Resident Activity Tracking <Donnie Díaz DO - Last Filed: 10/31/18 06:48> Resident Involvement: Resident Care Provided Care Provided: OB Delivery
[2018-10-31 07:29] LABS: Hematocrit (blood only) 34.8 % (37-47); Hemoglobin 11.6 g/dL (12.0-16.0)
[2018-10-31] MEDS: PRENATAL VITAMIN 1 TAB PO SCH (08:49)
[2018-10-31] MEDS: IBUPROFEN 600 MG TAB PO PRN ×2 (08:49→16:08)
[2018-10-31] MEDS: DOCUSATE SODIUM 100 MG CAP PO SCH (08:49)
== END 2018-10-31 21:20 | disposition home or self-care (01) | DRG 807 ==
LOC: EDSTATUS 10-29 07:30 → 4S1 10-29 11:40 → 4S2 10-30 02:00